=== PATIENT | male | born 1970 | race Caucasian/White ===

== ENCOUNTER 2019-04-21 15:23 | Inpatient (IN) | payer MEDICAID ==
[~2019-04-21] VITALS: Ht 190.5 cm; Wt 108.9 kg
[2019-04-21 15:44] VITALS: BP_SYST 119
[2019-04-21 16:47] LABS: BASOPHILS # (AUTO) 0.1 K/uL (0.0-0.2); BASOPHILS % (AUTO) 0.7 % (0.0-2.0); EOSINOPHILS # (AUTO) 0.6 K/uL (0.0-0.4); EOSINOPHILS % (AUTO) 4.5 % (0.0-4.0); HEMATOCRIT 32.5 % (36-54); HEMOGLOBIN 10.9 g/dL (14.0-18.0); LYMPHOCYTES % (AUTO) 15.9 % (20.5-51.5); MEAN CORPUSCULAR HEMOGLOBIN 29 pg (27-31); MEAN CORPUSCULAR HGB CONC 34 % (32-36); MEAN CORPUSCULAR VOLUME 86 fL (79.0-98.0); MONOCYTES # (AUTO) 1.4 K/uL (0.0-1.0); NEUTROPHILS # (AUTO) 8.6 K/uL (1.8-7.7); NEUTROPHILS % (AUTO) 67.9 % (40.0-70.0); PLATELET COUNT (AUTO) 489 K/uL (130-430); RED BLOOD CELL COUNT(AUTO) 3.77 MIL/uL (4.2-6.2); RED CELL DISTRIBUTION WIDTH 12.9 % (9.0-15.0); WHITE BLOOD COUNT (AUTO) 12.7 K/uL (4.8-10.8)
[2019-04-21 16:52] LABS: CALCIUM 9.4 mg/dL (8.4-11.0); CREATININE 1.26 mg/dL (0.55-1.30); POTASSIUM 5.2 mmol/L (3.5-5.1)
[2019-04-21 16:58] LABS: ALBUMIN 2.8 g/dL (3.4-4.8); TOTAL BILIRUBIN 0.2 mg/dL (0.0-1.0)
[2019-04-21 17:36] LABS: PROTHROMBIN TIME 10.2 SECS (9.5-12.5)
--- NOTE | 2019-04-21 19:00 | NUR ---
Patient to ER bed 2 to gown for evaluation. Side rails up.
--- NOTE | 2019-04-21 19:10 | NUR ---
PT came to the ED for generalized weakness. Reports that he has had bloody diarrhea since February. Reports while at work he is unable to walk for 5 minutes without feeling weak. Reports he had received an ABX shot at urgent care with no relief. Denies n/v/d or fever. No other complaints/injuries noted. Will cont. to monitor.
[2019-04-21] MEDS ORDERED: NACL 0.9% 1,000 ML IV ONE ×2 (20:15→20:45)
--- NOTE | 2019-04-21 21:05 | NUR ---
ER at bedside examining patient.
--- NOTE | 2019-04-21 22:15 | NUR ---
Dr. Younger at bedside performing rectal exam with NANNETTE Meehan at bedside as tank builder supervisor.
[2019-04-21] MEDS ORDERED: LOSA50TA3 PO (22:27)
[2019-04-21] MEDS ORDERED: CIPR-172 PO (22:27)
[2019-04-21] MEDS ORDERED: SODIUM POLYSTYRENE SULFONATE 15 GM/60 ML UDBTL RC ONE (22:30)
[2019-04-21] MEDS ORDERED: SODIUM POLYSTYRENE SULFONATE 15 GM/60 ML UDBTL PO ONE (22:45)
--- NOTE | 2019-04-21 22:58 | NUR ---
ADMISSION NOTE Received patient from ER via cesar, received report from Evelyn MIR. Patient admitted with diagnosis of possible colitis flare up. Patient oriented to hospital routine, call light, toileting and safety-patient verbalized understanding. Addendum: 04/22/19 at 0004 by Dee Coates RN Correction: Diagnosis GI BLEED.
[2019-04-21 23:03] VITALS: BP_SYST 145
[2019-04-21] MEDS: NACL 0.9% 1,000 ML IV SCH (23:29)
[2019-04-21] MEDS ORDERED: MORPHINE 2 MG/ML INJ. SYRINGE IVP PRN (23:30)
[2019-04-21] MEDS ORDERED: ALBUTEROL SULFATE 0.083% 2.5 MG/3 ML VIAL.NEB INH PRN (23:30)
[2019-04-21] MEDS ORDERED: MORPHINE 4 MG/ML INJ. SYRINGE IVP PRN (23:30)
[2019-04-21 23:41] VITALS: BP_SYST 145
[2019-04-21] MEDS: ACETAMINOPHEN 325 MG TABLET PO PRN (23:41)
--- NOTE | 2019-04-22 | NUR ---
Resting Patient resting in bed. Informed patient that patient is to have nothing by mouth. Patient verbalized understanding. Also, if patient has bowel movement, to not flush so the nurse can assess the stool. Patient verbalized understanding. No other needs. IVF infusing well. Call light with the patient. Safety precautions in place.
--- NOTE | 2019-04-22 02:00 | NUR ---
BM Patient had loose stools with small amount of blood noted. Patient states it is getting better than before. Hygiene care provided by patient. No needs. Call light with the patient. Safety precautions in place.
--- NOTE | 2019-04-22 04:32 | NUR ---
Sleeping No signs of distress noted. breathing even and unlabored. IVF infusing well. Call light with the patient. Safety precautions in place.
[2019-04-22] MEDS: AMPICILLIN SODIUM/SULBACTAM NA 3 GM in NS 100 ML IV SCH ×4 (06:21→23:33)
[2019-04-22] MEDS ORDERED: AMPICILLIN SODIUM/SULBACTAM NA 3 GM VIAL ONE (06:25)
--- NOTE | 2019-04-22 06:50 | NUR ---
Closing notes Patient resting in bed. No signs of distress noted. Breathing even and unlabored. IV patent and intact, infusing IV ABX. All needs met throughout the shift. Call light with the patient. Safety precautions in place. Will endorse care to day shift RN.
[2019-04-22 07:08] LABS: BASOPHILS # (AUTO) 0.1 K/uL (0.0-0.2); BASOPHILS % (AUTO) 0.4 % (0.0-2.0); EOSINOPHILS # (AUTO) 0.8 K/uL (0.0-0.4); EOSINOPHILS % (AUTO) 7.1 % (0.0-4.0); HEMATOCRIT 29.8 % (36-54); HEMOGLOBIN 10.2 g/dL (14.0-18.0); LYMPHOCYTES # (AUTO) 2.5 K/uL (1.0-5.5); LYMPHOCYTES % (AUTO) 21.1 % (20.5-51.5); MEAN CORPUSCULAR HEMOGLOBIN 29 pg (27-31); MEAN CORPUSCULAR HGB CONC 34 % (32-36); MEAN CORPUSCULAR VOLUME 86 fL (79.0-98.0); MONOCYTES # (AUTO) 1.3 K/uL (0.0-1.0); MONOCYTES % (AUTO) 10.7 % (1.7-9.3); NEUTROPHILS # (AUTO) 7.1 K/uL (1.8-7.7); NEUTROPHILS % (AUTO) 60.7 % (40.0-70.0); PLATELET COUNT (AUTO) 437 K/uL (130-430); RED BLOOD CELL COUNT(AUTO) 3.47 MIL/uL (4.2-6.2); RED CELL DISTRIBUTION WIDTH 12.6 % (9.0-15.0)
[2019-04-22 07:19] LABS: ALBUMIN 2.5 g/dL (3.4-4.8); POTASSIUM 5.2 mmol/L (3.5-5.1); TOTAL BILIRUBIN 0.3 mg/dL (0.0-1.0)
--- NOTE | 2019-04-22 07:34 | NUR ---
OPENING NOTE Patient resting in the bed. No acute distress. AAO x 4. Denied of pain. Skin warm and dry to touch. IV intact to LAC, no redness, no swelling, no drainage. ON NS at 100ml/hr, infusing well. Discussed the safety issue, use call light when needs help, and plan of care, verbally understanding. Safety measure maintained. Call light within reached. Bed locked in low position, side rails up. Refused bed alarm, risk and benefit explained, verbally understanding. Will continue to monitor.
--- NOTE | 2019-04-22 07:50 | NUR ---
SEEN AND EXAMINED BY MARU MALONEY WITH ORDER RECEIVED.
[2019-04-22 08:00] VITALS: BP_SYST 127
[2019-04-22 08:11] LABS: WHITE BLOOD COUNT (AUTO) 11.8 K/uL (4.8-10.8)
[2019-04-22] MEDS ORDERED: PANTOPRAZOLE SODIUM 40 MG/VIAL (PROTONIX) IVP SCH ×2 (09:00)
--- NOTE | 2019-04-22 09:30 | NUR ---
SEEN AND EXAMINED BY SRINIVASA RESENDIZ.
--- NOTE | 2019-04-22 10:00 | NUR ---
POTASSIUM=5.2, INFORMED TO DR. CANTU WHILE HE WAS IN THE UNIT.
[2019-04-22] MEDS: PANTOPRAZOLE SODIUM 40 MG/VIAL (PROTONIX) IVP SCH (10:03)
[2019-04-22] MEDS: NACL 0.9% 1,000 ML IV SCH ×2 (11:08→23:33)
[2019-04-22 11:34] VITALS: BP_SYST 136
--- NOTE | 2019-04-22 12:05 | NUR ---
LUNCH Patient eating lunch, tolerated well. IV intact, IVF infusing well. Safety measure maintained. Call light within reached. Bed locked in low position, side rails up. Continue to monitor.
[2019-04-22 13:32] LABS: BASOPHILS % (AUTO) 0.4 % (0.0-2.0); EOSINOPHILS # (AUTO) 0.6 K/uL (0.0-0.4); EOSINOPHILS % (AUTO) 5.4 % (0.0-4.0); HEMATOCRIT 29.1 % (36-54); HEMOGLOBIN 9.7 g/dL (14.0-18.0); LYMPHOCYTES # (AUTO) 1.8 K/uL (1.0-5.5); LYMPHOCYTES % (AUTO) 15.4 % (20.5-51.5); MEAN CORPUSCULAR HEMOGLOBIN 29 pg (27-31); MEAN CORPUSCULAR HGB CONC 33 % (32-36); MEAN CORPUSCULAR VOLUME 86 fL (79.0-98.0); NEUTROPHILS # (AUTO) 8.1 K/uL (1.8-7.7); NEUTROPHILS % (AUTO) 69.8 % (40.0-70.0); PLATELET COUNT (AUTO) 461 K/uL (130-430); RED BLOOD CELL COUNT(AUTO) 3.38 MIL/uL (4.2-6.2); RED CELL DISTRIBUTION WIDTH 12.8 % (9.0-15.0); WHITE BLOOD COUNT (AUTO) 11.5 K/uL (4.8-10.8)
--- NOTE | 2019-04-22 14:00 | NUR ---
FAMILY VISITED AT BEDSIDE AND TALKED TO PATIENT.
--- NOTE | 2019-04-22 14:06 | NUR ---
Dietitian Recommendations * Recommend continuing clear liquid diet (ONS Ensure Clear TID comes standard w/ clear liquid diet -- provides an additional 720 kcal/day, 24 gm protein/day) YESENIA CARDENAS Please refer to Nutrition Assessment for details. Addendum: 04/22/19 at [address] Amended: Links added.
[2019-04-22 16:00] VITALS: BP_SYST 121
--- NOTE | 2019-04-22 16:05 | NUR ---
COLONOSCOPY CONSENT SIGNED Explained the prep procedure to the patient, verbally understanding. Per patient Dr. Gamez already explained to him about the colonoscopy procedure.
[2019-04-22] MEDS ORDERED: BISACODYL 5 MG TABLET.DR (DULCOLAX) PO ONE (17:00)
[2019-04-22] MEDS ORDERED: GOLYTELY / COLYTE SOLUTION 4 LITERS PO ONE (18:00)
--- NOTE | 2019-04-22 18:28 | NUR ---
CLOSING NOTE Patient resting in the bed. No acute distress. Denied of pain. Skin warm and dry to touch. IV intact to LAC, no redness, no swelling, no drainage. On NS at 100ml/hr, infusing well. All needs met. Safety measure maintained. Call light within reached. Bed locked in low position, side rails up. Refused bed alarm, risk and benefit explained, verbally understanding. Will endorse to night nurse.
--- NOTE | 2019-04-22 19:30 | NUR ---
Opening notes Received report. Patient is resting in bed. No signs of distress noted. Breathing even and unlabored. IV patent and intact, infusing fluids. Patient tolerating GoLytly prep. No needs at this time. Call light with the patient. Safety precautions in place.
[2019-04-22 19:54] LABS: BASOPHILS # (AUTO) 0.1 K/uL (0.0-0.2); BASOPHILS % (AUTO) 0.8 % (0.0-2.0); EOSINOPHILS # (AUTO) 0.8 K/uL (0.0-0.4); EOSINOPHILS % (AUTO) 6.9 % (0.0-4.0); HEMATOCRIT 29.8 % (36-54); HEMOGLOBIN 10.1 g/dL (14.0-18.0); LYMPHOCYTES # (AUTO) 3.1 K/uL (1.0-5.5); LYMPHOCYTES % (AUTO) 26.4 % (20.5-51.5); MEAN CORPUSCULAR HEMOGLOBIN 29 pg (27-31); MEAN CORPUSCULAR HGB CONC 34 % (32-36); MEAN CORPUSCULAR VOLUME 86 fL (79.0-98.0); MONOCYTES # (AUTO) 1.2 K/uL (0.0-1.0); MONOCYTES % (AUTO) 9.8 % (1.7-9.3); NEUTROPHILS # (AUTO) 6.6 K/uL (1.8-7.7); NEUTROPHILS % (AUTO) 56.1 % (40.0-70.0); PLATELET COUNT (AUTO) 458 K/uL (130-430); RED BLOOD CELL COUNT(AUTO) 3.48 MIL/uL (4.2-6.2); RED CELL DISTRIBUTION WIDTH 12.9 % (9.0-15.0); WHITE BLOOD COUNT (AUTO) 11.8 K/uL (4.8-10.8)
[2019-04-22 20:47] VITALS: BP_SYST 140
--- NOTE | 2019-04-22 21:30 | NUR ---
Resting Patient resting. No signs of distress noted. Patient ambulatory with steady gait. Stools not clear yet. No needs at this time. call light with the patient. Safety precautions in place.
--- NOTE | 2019-04-23 | NUR ---
IVF/IV ABX IV ABX and new bag of IVF hung. No signs of distress noted. Breathing even and unlabored. Per Patient, stools are clear. Informed patient to let nurse knows next time he has bowel movement. Patient verbalized understanding. Call light with the patient. Safety precautions in place.
--- NOTE | 2019-04-23 02:00 | NUR ---
Sleeping No signs of distress noted. Breathing even and unlabored. IVF infusing well. Patient constantly going to bathroom. No needs. Call light with the patient. Safety precautions in place.
[2019-04-23 02:31] VITALS: BP_SYST 129
--- NOTE | 2019-04-23 04:46 | NUR ---
Sleeping No signs of distress noted. Breathing even and unlabored. IVF infusing well. Patient refusing tap water enema. Patient bowel movements are clear.
[2019-04-23] MEDS: AMPICILLIN SODIUM/SULBACTAM NA 3 GM in NS 100 ML IV SCH ×3 (05:22→17:45)
[2019-04-23] MEDS: NACL 0.9% 1,000 ML IV SCH ×2 (05:23→16:19)
--- NOTE | 2019-04-23 06:34 | NUR ---
Closing notes Patient is resting in bed. No signs of distress noted. Breathing even and unlabored. IV patent and intact, infusing fluids. Patient ready for colonoscopy. All needs met throughout the shift. call light with the patient. Safety precautions in place. Will endorse care to day shift RN. Addendum: 04/23/19 at 0704 by Dee Coates RN Patient taken to have colonoscopy procedure via wheelchair. Patient in stable condition.
[2019-04-23] MEDS ORDERED: MIDAZOLAM HCL 5 MG/5 ML VIAL ONE (06:35)
[2019-04-23] MEDS ORDERED: SIMETHICONE 40 MG/0.6 ML ML ONE (06:36)
[2019-04-23 06:41] LABS: PROTHROMBIN TIME 10.3 SECS (9.5-12.5)
[2019-04-23] MEDS: fentaNYL CITRATE/PF 100 MCG/2 ML AMP ONE ×2 (07:09→07:13)
[2019-04-23] MEDS: MIDAZOLAM HCL 5 MG/5 ML VIAL ONE ×4 (07:09→07:18)
--- NOTE | 2019-04-23 07:40 | NUR ---
PATIENT NOT IN THE UNIT STILL IN GI LAB.
--- NOTE | 2019-04-23 08:40 | NUR ---
BACK TO UNIT Patient back from GI lab via wheelchair in stable condition, report given by ADEOLA Stewart. Colonoscopy done with diagnosis of ulcerative colitis, stool sample for c-diff, ova and parasites, and culture were sent. Safety measure maintained. Call light within reached. Bed locked in low position, side rails up. Refused bed alarm, risk and benefit explained, verbally understanding. Will continue to monitor.
[2019-04-23 08:42] VITALS: BP_SYST 141
--- NOTE | 2019-04-23 08:50 | NUR ---
IV RE-INSERTION: Noted IV out, tip intact, no bleeding. Restarted on left hand, gauge 22 with good blood return. Successful after one attempt. Resumed current IVF of NS and regulated at 100ml/hr. Will observe for any signs of infiltration.
[2019-04-23] MEDS: ACETAMINOPHEN 325 MG TABLET PO PRN (08:58)
[2019-04-23] MEDS: MESALAMINE 400 MG CAPSULE.DR PO SCH ×4 (08:58→20:55)
[2019-04-23] MEDS: methylPREDNISolone SOD SUCC/PF 62.5 MG/ML VIAL IVP SCH (08:59)
[2019-04-23] MEDS: PANTOPRAZOLE SODIUM 40 MG/VIAL (PROTONIX) IVP SCH (08:59)
--- NOTE | 2019-04-23 10:26 | NUR ---
SLEEPING Patient sleeping at this time. No acute distress. IV intact, IVF infusing well. Safety measure maintained. Call light within reached. Bed locked in low position, side rails up. Continue to monitor.
[2019-04-23 12:15] VITALS: BP_SYST 132
--- NOTE | 2019-04-23 12:20 | NUR ---
ROUND Patient resting in the bed and talking via phone. IV intact, IVF infusing well. Safety measure maintained. Call light within reached. Bed locked in low position, side rails up, bed alarm on. Continue to monitor.
--- NOTE | 2019-04-23 14:25 | NUR ---
ROUND Patient resting in the bed. No acute distress. IV intact, IVF infusing well. Safety environment maintained. Bed locked in low position, side rails up, bed alarm on. Call light within reached. Continue to monitor.
--- NOTE | 2019-04-23 16:50 | NUR ---
FRIEND VISITED Friend visited and talked to patient in bedside. Patient no acute distress. IV intact, IVF infusing well. Safety environment maintained. Call light within reached. Bed in low position, side rails up. Continue to monitor.
[2019-04-23 16:55] VITALS: BP_SYST 126
--- NOTE | 2019-04-23 18:41 | NUR ---
CLOSING NOTE Patient resting in the bed. No acute distress. Denied of pain. Skin warm and dry to touch. IV intact to left hand, no redness, no swelling, no drainage. On NS at 100ml/hr, infusing well. All needs met. Safety measure maintained. Call light within reached. Bed locked in low position, side rails up. Refused bed alarm, risk and benefit explained, verbally understanding. Will endorse to night nurse.
[2019-04-23 19:55] VITALS: BP_SYST 142
--- NOTE | 2019-04-23 19:55 | NUR ---
INITIAL NOTE AT INITIAL ASSESSMENT, PATIENT IS RESTING IN BED, STABLE, NO SIGNS OF RESPIRATORY DISTRESS. PATIENT VERBALIZES NO PAIN AT THIS TIME. PLAN OF CARE FOR THE EVENING IS COMMUNICATED WITH THE PATIENT. PATIENT SUCCESSFULLY DEMONSTRATES CORRECT USAGE OF CALL LIGHT AT THIS TIME. BED IS LOCKED, ALARMED, AND AT THE LOWEST LEVEL. FALL AND SAFETY PRECAUTIONS WILL BE IN PLACE THROUGHOUT THE SHIFT.
--- NOTE | 2019-04-23 21:55 | NUR ---
NOTE SCHEDULED NIGHT TIME MEDICATIONS ARE GIVEN AT THIS TIME. PATIENT IS RESTING IN BED, STABLE, NO SIGNS OF RESPIRATORY DISTRESS. CALL LIGHT IS WITHIN REACH. BED IS LOCKED, ALARMED, AND AT THE LOWEST LEVEL.
--- NOTE | 2019-04-23 23:55 | NUR ---
NOTE PATIENT IS SLEEPING, STABLE, NO SIGNS OF RESPIRATORY DISTRESS. CALL LIGHT IS WITHIN REACH. BED IS LOCKED, ALARMED, AND AT THE LOWEST LEVEL.
[2019-04-24] MEDS: AMPICILLIN SODIUM/SULBACTAM NA 3 GM in NS 100 ML IV SCH ×2 (00:05→06:21)
[2019-04-24 00:37] VITALS: BP_SYST 121
--- NOTE | 2019-04-24 01:55 | NUR ---
NOTE PATIENT IS SLEEPING, STABLE, NO SIGNS OF RESPIRATORY DISTRESS. CALL LIGHT IS WITHIN REACH. BED IS LOCKED, ALARMED, AND AT THE LOWEST LEVEL.
--- NOTE | 2019-04-24 03:55 | NUR ---
NOTE PATIENT IS SLEEPING, STABLE, NO SIGNS OF RESPIRATORY DISTRESS. CALL LIGHT IS WITHIN REACH. BED IS LOCKED, ALARMED, AND AT THE LOWEST LEVEL.
--- NOTE | 2019-04-24 05:30 | NUR ---
NOTE PATIENT IS SLEEPING, STABLE, NO SIGNS OF RESPIRATORY DISTRESS. CALL LIGHT IS WITHIN REACH. BED IS LOCKED, ALARMED, AND AT THE LOWEST LEVEL.
[2019-04-24] MEDS: NACL 0.9% 1,000 ML IV SCH (06:22)
--- NOTE | 2019-04-24 06:45 | NUR ---
CLOSING NOTE PATIENT HAD A SMALL BOWEL MOVEMENT THIS MORNING, HE TOLERATED WELL WITH NO DISCOMFORT. PATIENT SLEPT WELL THROUGHOUT THE SHIFT. AT THIS TIME, PATIENT IS RESTING IN BED, STABLE, NO SIGNS OF RESPIRATORY DISTRESS. CALL LIGHT IS WITHIN REACH. BED IS LOCKED, ALARMED, AND AT THE LOWEST LEVEL. FALL AND SAFETY PRECAUTIONS HAVE BEEN TAKEN THROUGHOUT THE SHIFT. WILL CONTINUE TO MONITOR UNTIL SHIFT REPORT IS GIVEN AT BEDSIDE TO AM NURSE.
--- NOTE | 2019-04-24 07:50 | NUR ---
OPENING NOTE RECEIVED PATIENT AWAKE IN BED. A/OX4. DENIES ANY PAIN. ROOM AIR. NO ACUTE DISTRESS. NO SOB. RESP EVEN AND UNLABORED. SKIN WARM AND DRY TO TOUCH. IV INTACT AND PATENT; LELA IVF. BED IN LOW AND LOCKED POSITION. SIDERAIL UPX2. ALL NEEDS MET. CALL LIGHT IN REACH. CONT TO MONITOR
[2019-04-24 08:00] VITALS: BP_SYST 147
[2019-04-24 08:10] LABS: HEPATITIS A AB, IgM Negative (Negative); HEPATITIS B CORE AB, IgM Negative (Negative); HEPATITIS B SURFACE AG Negative (Negative)
[2019-04-24] MEDS: MESALAMINE 400 MG CAPSULE.DR PO SCH (08:11)
[2019-04-24] MEDS: methylPREDNISolone SOD SUCC/PF 62.5 MG/ML VIAL IVP SCH (08:11)
[2019-04-24] MEDS: PANTOPRAZOLE SODIUM 40 MG/VIAL (PROTONIX) IVP SCH (08:11)
--- NOTE | 2019-04-24 08:18 | NUR ---
meds ALL DUE MEDS ADMINISTERED ORDERED, LELA WELL. TEACHING DONE ON MEDICATION AND ASE. ALL NEEDS MET. CONT TO MONITOR.
--- NOTE | 2019-04-24 09:30 | NUR ---
SEEN AND EXAMINED BY AT BEDSIDE
[2019-04-24 10:09] VITALS: BP_SYST 139
--- NOTE | 2019-04-24 10:50 | NUR ---
D/C Patient Patient given medication reconciliation form and D/C instructions. Exit Care provided. Patient verbalized understanding. MD discussed with patient the results and treatment provided. Ambulatory with steady gait for discharge to home. Patient in stable condition, ID band removed. IV catheter removed, intact and dressing applied, no active bleeding. Rx of prednisone and mesalamine given. Patient educated on pain management. All belongings sent with patient.
== END 2019-04-24 10:50 | disposition home or self-care (01) | DRG 245 ==
LOC: SED 15:23 → SMU 22:55
PROVIDERS: ADMIT Internal Medicine Hospice and Palliative Medicine; ATTEND Internal Medicine Hospice and Palliative Medicine
PROC: 0DBB8ZX Excision of Ileum, Via Natural or Artificial Opening Endoscopic, Diagnostic (ICD-10-PCS; 2019-04-23)
PROC: 0DBM8ZX Excision of Descending Colon, Via Natural or Artificial Opening Endoscopic, Diagnostic (ICD-10-PCS; 2019-04-23)
PROC: 0DBK8ZX Excision of Ascending Colon, Via Natural or Artificial Opening Endoscopic, Diagnostic (ICD-10-PCS; principal; 2019-04-23 07:00)
DX: K51.90 Ulcerative colitis, unspecified, without complications (principal); E43 Unspecified severe protein-calorie malnutrition; I10 Essential (primary) hypertension; E87.1 Hypo-osmolality and hyponatremia; D72.829 Elevated white blood cell count, unspecified; D64.9 Anemia, unspecified; Z68.30 Body mass index [BMI] 30.0-30.9, adult; Z79.899 Other long term (current) drug therapy
CPT/HCPCS: 36415; 45380; 71045; 80053; 80074; 83605; 83690-TC; 84484; 85025; 85610-TC; 85651-TC; 85730-TC; 86140; 86480; 87040-TC; 87177; 88305; 93005; 96360; 99285; C9113; J0295; J2250; J2930; J3010; J7030

== ENCOUNTER 2020-03-29 11:04 | Emergency (ER) | payer MEDICAID ==
[~2020-03-29] VITALS: Ht 190.5 cm; Wt 115.7 kg
[~2020-03-29 11:04] MED LIST: LOSA50TA3 PO
--- NOTE | 2020-03-29 11:20 | NUR ---
Patient to ER bed 3 to gown for evaluation. Side rails up. Report given to Nidhi MIR.
[2020-03-29 11:21] VITALS: BP_SYST 148
--- NOTE | 2020-03-29 11:28 | NUR ---
Patient arrived in the ED c/o pain on the left side of his body, fell and landed on a compressor last week. Denied any chest pain or shortness of breath. Denied any fevers, chills, nausea or vomiting. Patient is alert and oriented x4, respirations even and unlabored, speaking in full sentences, and ambulating with a steady gait. VSS, pain level 6/10. Informed of the approximate wait time. Instructed to notify ED staff for any changes in condition or worsening of symptoms while waiting to be seen by an ED provider. Patient verbalized understanding.
--- NOTE | 2020-03-29 11:42 | NUR ---
dr ulloa in to assess
[2020-03-29] MEDS ORDERED: KETOROLAC TROMETHAMINE 60 MG/2 ML VIAL IM ONE (11:45)
--- NOTE | 2020-03-29 11:54 | NUR ---
medicated the pt w/ Toradol IM per MD order. Will reassess
[2020-03-29] MEDS ORDERED: MORPHINE SULFATE 10 MG/ML VIAL IM ONE (12:45)
--- NOTE | 2020-03-29 12:45 | NUR ---
Administered Morphine Sulfate IM as ordered by Dr. Kamla Carney. Patient tolerated the medications well. See eMAR for details.
[2020-03-29 12:54] VITALS: BP_SYST 126
--- NOTE | 2020-03-29 12:55 | NUR ---
Patient given written and verbal discharge instructions and verbalizes understanding. ER MD discussed with patient the results and treatment provided. Patient in stable condition. ID arm band removed. Rx of Goodrich and Ibuprofen 800mg given. Patient educated on pain management and to follow up with PMD. Pain Scale 0/10. Opportunity for questions provided and answered. Medication side effect fact sheet provided.
== END 2020-03-29 12:54 | disposition home or self-care (01) ==
LOC: SED 11:04
DX: S20.212A Contusion of left front wall of thorax, initial encounter (principal); I10 Essential (primary) hypertension; X58.XXXA Exposure to other specified factors, initial encounter; Y93.89 Activity, other specified; Y92.89 Other specified places as the place of occurrence of the external cause; Y99.8 Other external cause status
CPT/HCPCS: 71045; 96372; 99284; J1885; J2270

== ENCOUNTER 2021-03-11 12:00 | Emergency (ER) | payer MEDICAID ==
[~2021-03-11] VITALS: Ht 190.5 cm; Wt 106.6 kg
[2021-03-11 12:05] VITALS: BP_SYST 148
--- NOTE | 2021-03-11 12:14 | NUR ---
Patient to h1 to gown for evaluation. Side rails up.
--- NOTE | 2021-03-11 12:30 | NUR ---
pt moved to er 3
[2021-03-11] MEDS ORDERED: ONDANSETRON HCL 4 MG/2 ML VIAL IVP ONE ×2 (13:30→20:30)
[2021-03-11] MEDS ORDERED: NACL 0.9% 1,000 ML IV ONE (13:30)
[2021-03-11] MEDS ORDERED: MORPHINE 4 MG INJ. 4 MG/ML VIAL IVP ONE ×2 (13:30→20:30)
[2021-03-11] MEDS ORDERED: DIPHENHYDRAMINE INJ 50 MG/ML VIAL IVP ONE (13:30)
[2021-03-11 13:56] LABS: BASOPHILS # (AUTO) 0.1 K/uL (0.0-0.2); BASOPHILS % (AUTO) 0.4 % (0.0-2.0); HEMATOCRIT 42.5 % (36-54); HEMOGLOBIN 14.5 g/dL (14.0-18.0); LYMPHOCYTES # (AUTO) 1.3 K/uL (1.0-5.5); LYMPHOCYTES % (AUTO) 7.2 % (20.5-51.5); MEAN CORPUSCULAR HEMOGLOBIN 30 pg (27-31); MEAN CORPUSCULAR HGB CONC 34 % (32-36); MEAN CORPUSCULAR VOLUME 87 fL (79.0-98.0); MONOCYTES # (AUTO) 1.4 K/uL (0.0-1.0); MONOCYTES % (AUTO) 7.9 % (1.7-9.3); NEUTROPHILS % (AUTO) 84.5 % (40.0-70.0); PLATELET COUNT (AUTO) 270 K/uL (130-430); RED BLOOD CELL COUNT(AUTO) 4.91 MIL/uL (4.2-6.2); RED CELL DISTRIBUTION WIDTH 12.4 % (9.0-15.0); WHITE BLOOD COUNT (AUTO) 17.8 K/uL (4.8-10.8)
[2021-03-11 14:02] LABS: CALCIUM 9.5 mg/dL (8.4-11.0); CREATININE 1.05 mg/dL (0.55-1.30); POTASSIUM 4.1 mmol/L (3.5-5.1)
[2021-03-11 14:06] LABS: PROTHROMBIN TIME 10.8 SECS (9.5-12.5)
[2021-03-11 14:08] LABS: ALBUMIN 3.8 g/dL (3.4-4.8); TOTAL BILIRUBIN 0.8 mg/dL (0.0-1.0)
[2021-03-11 15:25] LABS: BILIRUBIN,URINE NEGATIVE (NEGATIVE); BLOOD, URINE NEGATIVE (NEGATIVE); CLARITY/URINE CLEAR (CLEAR); COLOR,URINE YELLOW (YELLOW); GLUCOSE,URINE NEGATIVE (NEGATIVE); KETONES,URINE 2+ (NEGATIVE); LEUKOCYTE ESTERASE ,URINE NEGATIVE (NEGATIVE); NITRITE, URINE NEGATIVE (NEGATIVE); PH,URINE 8.5 (5.0-8.0); PROTEIN URINE TRACE (NEGATIVE); UROBILINOGEN,URINE 0.2 (0.2-1.0)
[2021-03-11] MEDS ORDERED: PIPERACILLIN/TAZO 3.375 GM in NS 50 ML IV ONE (16:30)
--- NOTE | 2021-03-11 19:20 | NUR ---
ASSUMED CARE OF PT FROM STEPHEN MIR
--- NOTE | 2021-03-11 20:43 | NUR ---
Patient to be transferred to [facility]. Is being transferred due to higher level of care. Receiving facility has accepting physician and available space. ER physician has signed transfer form. Patient or responsible constitution party has agreed to transfer and signed form. Patient belongings inventoried and will be sent with patient. Copy of nursing notes, lab reports, EKG, Physicians Orders and X-rays to be sent with patient. Report called to ARSLAN MIR at receiving facility. Receiving physician is TBMathew. TBD ambulance service has been called for transfer. ETA is TBD.
[2021-03-12 01:43] VITALS: BP_SYST 147
--- NOTE | 2021-03-12 01:55 | NUR ---
PT PICKED UP BY [facility].
== END 2021-03-12 01:43 | disposition short-term general hospital (02) ==
LOC: SED 12:00
DX: K52.9 Noninfective gastroenteritis and colitis, unspecified (principal); I10 Essential (primary) hypertension; Z79.899 Other long term (current) drug therapy; Z20.822 Contact with and (suspected) exposure to COVID-19
CPT/HCPCS: 36415; 74176; 76376; 80053; 81003; 85025; 85610; 85730; 87426; 93005; 96361; 96365; 96375; 99285; J1200; J2270; J2405; J7030